=== PATIENT | male | born 1950 | race Caucasian/White ===

== ENCOUNTER 2022-01-14 05:07 | Observation (INO) ==
--- NOTE | 2021-12-19 16:02 | PAT Medication Instructions ---
Medication Instructions Date of Service December 19, 2021 Home Medications allopurinol 100 mg tablet 200 mg PO QAM aspirin 81 mg tablet,delayed release 81 mg PO QAM dutasteride 0.5 mg capsule 0.5 mg PO QAM Centrum Men 2 tab PO QAM olmesartan 20 mg tablet 20 mg PO QAM pioglitazone 45 mg tablet 45 mg PO QAM rosuvastatin 10 mg tablet 10 mg PO HS sitagliptin 100 mg tablet (Januvia) 100 mg PO QAM tamsulosin 0.4 mg capsule 0.8 mg PO HS vit C-vit E-sbguzj-tlcxogsl-omega 3 100 mg-15 unit-2 mg-100 mg capsule 2 cap PO QAM ASK your prescriber and surgeon aspirin 81 mg tablet,delayed release 81 mg PO QAM STOP taking 2 weeks before surgery (or as soon as possible if surgery is within 2 weeks) vit C-vit X-jwtgls-xwyhydqc-omega 3 100 mg-15 unit-2 mg-100 mg capsule 2 cap PO QAM DO NOT take the morning of surgery Centrum Men 2 tab PO QAM olmesartan 20 mg tablet 20 mg PO QAM pioglitazone 45 mg tablet 45 mg PO QAM sitagliptin 100 mg tablet (Januvia) 100 mg PO QAM Take morning of surgery With a small sip of water, OTHERWISE NOTHING TO EAT OR DRINK AFTER MIDNIGHT: allopurinol 100 mg tablet 200 mg PO QAM aspirin 81 mg tablet,delayed release 81 mg PO QAM (continue as normal unless told otherwise by surgeon) dutasteride 0.5 mg capsule 0.5 mg PO QAM Take evening before surgery rosuvastatin 10 mg tablet 10 mg PO HS tamsulosin 0.4 mg capsule 0.8 mg PO HS Other Notes If you have any questions please call us at [phone] or [phone] or [phone] or [phone]
--- NOTE | 2021-12-22 12:54 | Anesthesiology Consultation ---
Date of Service December 22, 2021 Assessment & Plan (1) Encounter for pre-operative examination: - Patient acceptable risk for surgery pending surgeon-ordered PCP preop evaluation (Dr. Barahona; 12/25). - COVID screening: Per assessment on 12/22: No known COVID-19 positive contacts or current COVID-19 related symptoms. Travel screen- patient states he will be driving to [place] with three friends to go [employer] 12/27-01/03. No large gatherings. Patient vaccinated. Preop Covid test scheduled 01/12 ([place]). Awaiting results. - Check BSG AM DOS Chart Review Chart Review: Patient seen in Pre Admission Testing Teaching & Discussion Pre-Anesthesia Teaching/Discussion Notes: Instructed NPO after midnight before surgery,except medications with 15 cc of water. Medication instructions provided according to the PAT guidelines. History Surgery Operation Date: 01/14/22 07:00 Proposed Procedures p Right Total Knee Arthroplasty - Juma Tamayo MD Height/Weight Height: 5 ft 8 in Weight: 131 kg Allergies Allergy/AdvReac Type Severity Reaction Status Date / Time No Known Allergies Allergy Verified 12/19/21 15:24 Medications Home Medications Medication Instructions Recorded Confirmed Last Taken allopurinol 100 mg tablet 200 mg PO QAM 12/19/21 12/19/21 Unknown dutasteride 0.5 mg capsule 0.5 mg PO QAM 12/19/21 12/19/21 Unknown multivit,Ca,min-iron 8 mg-folic 2 tab PO QAM 12/19/21 12/19/21 Unknown acid 200 mcg-lycopene 600 mcg tablet (Centrum Men) olmesartan 20 mg tablet 20 mg PO QAM 12/19/21 12/19/21 Unknown pioglitazone 45 mg tablet 45 mg PO QAM 12/19/21 12/19/21 Unknown rosuvastatin 10 mg tablet 10 mg PO HS 12/19/21 12/19/21 Unknown sitagliptin 100 mg tablet (Januvia) 100 mg PO QAM 12/19/21 12/19/21 Unknown tamsulosin 0.4 mg capsule 0.8 mg PO HS 12/19/21 12/19/21 Unknown vit C-vit M-zrflry-ljdnpraq-omega 2 cap PO QAM 12/19/21 12/19/21 Unknown 3 100 mg-15 unit-2 mg-100 mg capsule Past Medical History Medical History (Updated 12/22/21 @ 13:19 by Andressa Oconnell) Arthritis BPH (benign prostatic hyperplasia) Diabetes mellitus, type 2 NIDDM DVT (deep venous thrombosis) 1997, unknown etiology Hx of gout Hyperlipidemia Hypertension Morbid obesity Exercise / Class Metabolic Activity II 4-5 Yardwork/Stairs/Walk up hill Past Family History Family History Mother Diabetes Daughter Diabetes Past Surgical History Surgical History History of arthroscopy Left knee R/L shoulders History of colonoscopy History of surgery on right wrist cyst removed History of tonsillectomy History of tooth extraction Past Anesthesia History No Hx of Anesthesia Complications and No Family Hx of Anesthesia Complications History of PONV No Hx of PONV and No Hx of Motion Sickness Social History Smoking Status: Never smoker Do You Dip or Chew Tobacco: No Hx Alcohol Use: Yes Alcohol type: beer alcohol intake frequency: holidays/special occasions only Hx Substance Use: No substance use type: does not use Review of Systems Patient denies chest pain, shortness of breath, dyspnea on exertion, fever, chills, cough, wheezing, palpitations. Physical Exam Vital Signs VITALS BP 132/76 P 73 TEMP 98.4 SP02 95%RA RESP 16 PHYSICAL Full cervical extension range of motion. Full TMJ range of motion. TMD 3 finger breaths Mallampati Score 1 Dentition: several missing (molars) Lungs: clear throughout to auscultation Cardiac: regular rate and rhythm, no murmurs noted Spine: normal Carotid arteries: negative bruit Extremities: no edema Short, thick neck Lab Results Anesthesia Preop Results Results Anesthesia Widget: WBC 6.81 K/uL (4.8-10.8) 12/22/21 Hgb 14.6 g/dL (14.0-18.0) 12/22/21 Hct 44.4 % (42-52) 12/22/21 Plt 188 K/uL (130-400) 12/22/21 Na 142 mmol/L (136-145) 12/22/21 K 4.2 mmol/L (3.5-5.1) 12/22/21 Cl 108 mmol/L (98-107) H 12/22/21 CO2 29 mmol/L (21-32) 12/22/21 BUN 21 mg/dl (6-23) 12/22/21 Creat 1.23 mg/dl (0.6-1.4) 12/22/21 Glucose Level 173 mg/dl (70-99(Fasting)) H 12/22/21 PT 10.3 Seconds (9.0-12.0) 12/22/21 PTT 25.9 Seconds (21.0-31.0) 12/22/21 INR 1.0 (0.9-1.1) 12/22/21 HA1c 7.8 % (4.5-5.6) H 12/22/21 Urine Color Yellow 12/22/21 Urine Appearance Clear (Clear) 12/22/21 Urine pH 5.0 (4.5-7.5) 12/22/21 Urine Specific [place] 1.021 (1.000-1.030) 12/22/21 Urine Protein Trace (Negative) H 12/22/21 Urine Glucose (UA) Negative (Negative) 12/22/21 Urine Ketones Negative (Negative) 12/22/21 Urine Blood Negative (Negative) 12/22/21 Urine Nitrite Negative (Negative) 12/22/21 Urine Bilirubin Negative (Negative) 12/22/21 Urine Urobilinogen Negative (Negative) 12/22/21 Urine Leukocyte Esterase Negative (Negative) 12/22/21 Urine WBC (Auto) 0 /hpf (0-5) 12/22/21 Urine RBC (Auto) 0-4 /hpf (0-4) 12/22/21 Urine Hyaline Casts (Auto) 0 /lpf (0-5) 12/22/21 Urine Epithelial Cells (Auto) 0-5 /lpf (0-5) 12/22/21 Urine Bacteria (Auto) Negative (Negative) 12/22/21 Blood Type A Positive 12/22/21 Antibody Screen NEGATIVE 12/22/21 Testing Electrocardiogram Date: 12/22/21 NSR at 73bpm. RBBB. Chest X-Ray Date: 12/22/21 FINDINGS: The cardiomediastinal and hilar silhouettes are within normal limits. No pneumothorax, pleural effusion, airspace consolidation or overt pulmonary edema. Degenerative changes of the shoulders and spine. Mild right hemidiaphragmatic elevation. IMPRESSION: No acute process.
--- NOTE | 2021-12-29 16:08 | History & Physical Report ---
Date of Service December 29, 2021 Assessment & Plan (1) Right knee DJD: Plan: Postoperative prescriptions for Percocet and Coumadin will be provided at discharge from the hospital. Anticipate discharge to home with home health services. He already has access to a cane. He will also obtain a walker from a friend. The PDMP was checked and there are no concerning findings. He is aware of the COVID-19 risk associated with surgery. He is currently asymptomatic of any cover COVID-19 symptoms. Prescription was provided to obtain nasal swab testing 2 days prior to surgery. He was sent to [facility] to obtain lab work, EKG, and chest x-ray. He will obtain medical clearance from his PCP. History of Present Illness Chief Complaint: Right knee pain Primary Care Provider: NO PCP This 71-year-old male presents for his preoperative history and physical. He is scheduled to undergo a right knee total knee arthroplasty on 01/14/2022. The patient has had a longstanding history of bilateral knee pain, right greater than left. He received cortisone injections in the knees for many years with adequate relief. Over the last 3 years, his pain relief has diminished. He is now quite miserable. He cannot do the activities that he would like to. Pain is worse with weightbearing. It is affecting his ADLs. He denies any catching or locking. No buckling. No numbness or tingling. He notes mild effusions. There is night pain that prevents him from sleeping. Preoperative imaging has been obtained. Allergies Allergy/AdvReac Type Severity Reaction Status Date / Time No Known Allergies Allergy Verified 12/19/21 15:24 Home Medications Medication Instructions Recorded Confirmed Type allopurinol 100 mg tablet 200 mg PO QAM 12/19/21 12/19/21 History dutasteride 0.5 mg capsule 0.5 mg PO QAM 12/19/21 12/19/21 History multivit,Ca,min-iron 8 mg-folic 2 tab PO QAM 12/19/21 12/19/21 History acid 200 mcg-lycopene 600 mcg tablet (Centrum Men) olmesartan 20 mg tablet 20 mg PO QAM 12/19/21 12/19/21 History pioglitazone 45 mg tablet 45 mg PO QAM 12/19/21 12/19/21 History rosuvastatin 10 mg tablet 10 mg PO HS 12/19/21 12/19/21 History sitagliptin 100 mg tablet (Januvia) 100 mg PO QAM 12/19/21 12/19/21 History tamsulosin 0.4 mg capsule 0.8 mg PO HS 12/19/21 12/19/21 History vit C-vit C-yoaipz-doiwgxuu-omega 2 cap PO QAM 12/19/21 12/19/21 History 3 100 mg-15 unit-2 mg-100 mg capsule Past Med/Surg History Medical History Arthritis BPH (benign prostatic hyperplasia) Diabetes mellitus, type 2 NIDDM DVT (deep venous thrombosis) 1997, unknown etiology Hx of gout Hyperlipidemia Hypertension Morbid obesity Surgical History History of arthroscopy Left knee R/L shoulders History of colonoscopy History of surgery on right wrist cyst removed History of tonsillectomy History of tooth extraction Family History Mother Diabetes Daughter Diabetes Social History (Updated 12/29/21 @ 16:05 by Shun Tolentino PA-C) Smoking Status: Never smoker Second Hand Exposure: No; Hx Alcohol Use: Yes Alcohol type: beer Hx Substance Use: No Preferred Language: Japanese Communication Ability: Effective Clinical Project Manager Required: No Beliefs That Will Affect Care: None Current Living Situation: Spouse current occupational status: retired Feels Safe at Home: Yes Assistive Devices: Glasses and Walker Review of Systems Review of Systems: All systems reviewed & are unremarkable except as noted in HPI & below A total of 10 systems were reviewed. Physical Exam Physical Exam: Vitals: Height 171.4 cm, weight 131.4 kilograms, BMI 44.7. Temperature 36.4, BP 136/80, respirations 16, and O2 sat 94% on room air. General: Well-developed, well-nourished, elderly white male in no acute distress. Sitting on a bed. Alert and oriented. Skin: Warm and dry with good turgor. No rashes or lesions. No ecchymosis. No significant intra-articular effusion today. HEENT: Normocephalic, atraumatic. Eyes: PERRLA, EOMI. Nares patent bilaterally without turbinate enlargement. Oropharynx without erythema or exudate. Upper denture plate noted. Partial lower. Heart: RRR. No MGR. Lungs: Clear to auscultation bilaterally. No crackles, rhonchi or wheezing. Good air movement. Abdomen: Obese. Bowel sounds present x4, soft, nontender. No organomegaly. No masses. Musculoskeletal: Right knee has no intraarticular effusion. Slight varus align ment. He has full terminal extension. Flexion to 95 degrees. Strength is 5/5 with fairly good quad tone. Stable collateral ligaments. No defect in the patellar tendon or quadriceps tendon. Crepitus is palpable with motion at the patellofemoral joint. He ambulates today with a slightly antalgic gait. Neurologic: Gross sensation is intact across both lower extremities by soft touch. Peripheral pulses are 2+. Results & Data Results & Data ([facility]) Diagnostic Findings Radiographic imaging obtained previously shows significant medial joint space narrowing. He has [id number]. Periarticular osteophytes and subchondral sclerosis are also evident. Code Status & VTE Plan VTE Prophylaxis Plan VTE Prophylaxis will be ordered: Yes
[2022-01-14] MEDS ORDERED: TRANEXAMIC ACID 1,000 MG x 1 **For Topical Use TOP SCH (06:00)
[2022-01-14] MEDS ORDERED: LR 60ML/HR IV SCH (06:00)
[2022-01-14] MEDS ORDERED: ROPIVACAINE 0.5% HCL/PF 150 MG, BUPIVACAINE 0.75% MPF 20 ML, EPINEPHrine 0.15 MG, Ketor... INFIL SCH (06:00)
--- NOTE | 2022-01-14 06:16 | History & Physical Bridge Note ---
Date of Service January 14, 2022 History & Physical Bridge Note I have examined the patient, reviewed the History & Physical and in the interval since the performance of the History & Physical I have noted the following changes of clinical significance:consent obtained/site verified/covid screen negative. no changes noted
[2022-01-14] MEDS ORDERED: ROPIVACAINE 0.5% 5 MG/ML 30 ML VIAL ONE (06:19)
[2022-01-14] MEDS ORDERED: BUPIVACAINE 0.5 % 5 MG/1 ML PF 10ML VIAL ONE (06:19)
[2022-01-14] MEDS ORDERED: ORTHO JOINT ANESTHETIC ONE (06:30)
[2022-01-14] MEDS ORDERED: ONDANSETRON INJ 2 MG/ML 2 ML VIAL IV PRN ×2 (06:36→10:16)
[2022-01-14] MEDS ORDERED: fentaNYL citrate 100 MCG/2 ML VIAL IV PRN (06:36)
[2022-01-14] MEDS ORDERED: ePHEDrine sulfate 50 MG/ML AMP IV PRN (06:36)
[2022-01-14] MEDS ORDERED: ATROPINE SULFATE 0.1 MG/ML 10ML SYR IV PRN (06:36)
[2022-01-14] MEDS ORDERED: fentaNYL citrate 100 MCG/2 ML VIAL ONE (06:39)
[2022-01-14] MEDS ORDERED: MIDAZOLAM HCL 1 MG/ML 2ML VIAL ONE ×2 (06:39→07:20)
[2022-01-14] MEDS ORDERED: SUCCINYLCHOLINE CHLORIDE 20 MG/ML 10 ML VIAL IV ONE (07:33)
[2022-01-14] MEDS ORDERED: PROPOFOL IV EMULSION 10 MG/ML 20 ML VIAL IV ONE (07:33)
[2022-01-14] MEDS ORDERED: LIDOCAINE 2% 2 ML VIAL/AMP(20MG/ML) INFIL ONE (07:33)
[2022-01-14] MEDS ORDERED: ROCURONIUM BROMIDE 10 MG/ML 5 ML VIAL IV ONE (07:33)
--- NOTE | 2022-01-14 08:50 | Post Operative Brief Note ---
Immediate Post Op Note v1 Date of Surgery January 14, 2022 Pre & Post Diagnosis Operation Date: 01/14/22 07:00 Pre-Op Diagnosis: Osteoarthritis Knee Right Post-Op Diagnosis: Osteoarthritis Knee Right I identified the patient and participated in the time-out.: Yes Procedure Operation Date: 01/14/22 07:00 Actual Procedures p Right Total Knee Arthroplasty, Cemented(Right) - Juma Tamayo MD Surgeon Juma Tamayo MD Drug Abuse Program Coordinator Hema/Randa Estimated Blood Loss 50 Findings Consistent with Post-Op Diagnosis DJD/Bursa
--- NOTE | 2022-01-14 09:05 | Operative Report ---
Post Operative Report Pre & Post Diagnosis Operation Date: 01/14/22 07:00 Pre-Op Diagnosis: Osteoarthritis Knee Right Post-Op Diagnosis: Osteoarthritis Knee Right I identified the patient and participated in the time-out.: Yes Procedure Operation Date: 01/14/22 07:00 Actual Procedures p Right Total Knee Arthroplasty, Cemented(Right) - Juma Tamayo MD Surgeon Francisco Tamayo MD Program Management Specialist Hema/Randa Estimated Blood Loss 50 Findings Consistent with Post-Op Diagnosis Consistent with post op diagnosis. Specimens No specimens. Description of Procedure I participated in prepping dressing and assisted Dr. Tamayo during the procedure. Please see Dr. Tamayo. I attest to the content of the Intraoperative Record and any orders documented therein. Any exceptions are noted below. Supervising Physician Co-Signing Physician Notes Dr. Tamayo
--- NOTE | 2022-01-14 09:06 | Operative Report ---
Post Operative Report Pre & Post Diagnosis Operation Date: 01/14/22 07:00 Pre-Op Diagnosis: Osteoarthritis Knee Right Post-Op Diagnosis: Osteoarthritis Knee Right I identified the patient and participated in the time-out.: Yes Procedure Operation Date: 01/14/22 07:00 Actual Procedures p Right Total Knee Arthroplasty, Cemented(Right) - Juma Tamayo MD Surgeon JULIÁN Tamayo MD Power Manager Hema/Randa Estimated Blood Loss 50 Findings Consistent with Post-Op Diagnosis see operative report Specimens see operative report Drains none Complications none Disposition Accompanied Patient To Recovery: Yes Indications This 71 year old male presented to the office with complaints of persisting right knee pain. He had tried conservative care measures without improvement. He elected to proceed with surgical intervention after being educated about potential risks and outcomes. Preoperative imaging was obtained. Description of Procedure Patient was administered a spinal anesthetic and then taken to the operating room where he was given sedation. He was prepped and draped in the usual sterile fashion. Please see Dr. Tamayo's operative report for specifics of the procedure. I was present for the entire case from initial patient positioning through final wound closure. Assistance was provided in tissue retraction, hemostasis, trial implant placement, final implant placement, and final wound closure. Patient was taken to the recovery room in satisfactory condition. I attest to the content of the Intraoperative Record and any orders documented therein. Any exceptions are noted below.
--- NOTE | 2022-01-14 09:16 | Progress Notes ---
SUBJECTIVE: Postop check status post right total knee replacement. The patient is resting comfortab ly in bed. Spinal still in place. Denies any chest pain, shortness of breath, fever, chills, nausea , vomiting or headache. OBJECTIVE: Wound dressing clean, dry and intact. Neurovascular check limited by spinal. X-rays are pending. ASSESSMENT: Doing well. Continue care pathway. Job ID: [id number]
--- NOTE | 2022-01-14 09:28 | XRay Report ---
XR knee RT 1 or 2V routine CLINICAL HISTORY: S/P R TKA TECHNIQUE: 2 views of the right knee were obtained. Comparison: Comparison is made to knee radiographs 09/29/2021 FINDINGS: Patient is status post total knee arthroplasty with expected postsurgical changes including soft tiss ue swelling, subcutaneous emphysema, and surgical staple placement. No periarticular lucency or hardw are fracture is seen. IMPRESSION: Expected postoperative appearance status post placement of total knee arthroplasty. ACT 112: Negative or not required by law. Electronically signed by: Valdemar Fowler M.D. 01/14/2022 9:26 AM
--- NOTE | 2022-01-14 09:46 | Operative Report (OR) ---
DATE OF SURGERY: 01/14/2022. SURGEON: Juma Tamayo MD PAYROLL SERVICES ANALYST: Deb Garrido MD SECOND PAYROLL SERVICES ANALYST: Shun Tolentino PA-C PREOPERATIVE DIAGNOSIS: Osteoarthritis with flexion, and varus deformity, right knee. POSTOPERATIVE DIAGNOSIS: Osteoarthritis with flexion, and varus deformity, right knee. OPERATION PERFORMED: Cemented right total knee replacement. SUMMARY OF IMPLANTS: J and J rotating platform size 5 right femur, posterior cruciate substituting s ize 5 mobile bearing tray, 41 patella, size 5 x 10 mm posterior cruciate substituting insert, 2 bags of Pal[place]os G cement, oval dome 3-peg patella, size 41. BLOOD LOSS: 50 mL. CRYSTALLOID: Per anesthesia. PATHOLOGY: Pending on bone. DEEP VENOUS THROMBOSIS PROPHYLAXIS: Per protocol, will use Eliquis, history of DVT in the past. Mehdi l start that at 24 hours postop. DESCRIPTION OF PROCEDURE: The patient was appropriately identified, site verified, consent verified. Antibiotics were confirmed as being given. The right lower extremity was prepped and draped in the usual routine fashion. Tourniquet was inflated to 300 mmHg after exsanguination of limb with a rubb er Esmarch bandage for a total of 60 minutes. Midline exposure utilized. Parapatellar arthrotomy pe rformed, synovectomy completed, quite large ____ on the thigh at roughly 95 degrees. Eversion performed on the patella after extensive release, there was significant scar tissue there. Once the synovectomy was completed, osteophytes resected. Distal femur entered, resected 12 mm, prox imal tibia extramedullary guide placed and then that resected 4 mm. The extension gap was excellent. The tibia was sized to between a 4 and a 5, we kept the 5. The femur was sized between a 6 and a 5 , it was measured 6, cut 5 with no notching. Flexion gap was excellent. Posterior capsule was then injected. A box cut made and the size 5 fit w ell. The tibia was then broached and reamed to a size 5 and a 10 spacer gave excellent mid range and full extension and flexion stability and the range of motion was excellent. The patella required ex tensive lengthening of the extensor retinaculum laterally. The patella was then resected leaving 14 mm and a 41 button was seated and then tracked well with the appropriate soft tissue realignments. All trial elements were then removed. The wound was soaked with TXA for 3 minutes, then irrigated wi th Betadine, Pulsavac, and the permanent cemented in position, tibia, femur, and patella in that orde r. After 12 minutes, the tourniquet deflated. Minor bleeding encountered. After 14 minutes, the kn ee flexed. Minor cement removal required. The wound was then irrigated one final time with Betadine and the permanent liner seated. The knee reduced at 40 degrees of flexion with #2 Vicryl, 2-0 Vicry l, and stainless steel clips. Due to his venous disease, a Martin Faulkner dressing was applied. He wi ll be weightbearing as tolerated. He will need good venous compression throughout the recovery. Margaret mar pending on bone. Job ID: [id number]
--- NOTE | 2022-01-14 09:48 | Anesthesiology Progress Note ---
Date of Service January 14, 2022 Anesthesia Post Procedure Vital Signs Vital Signs: Temp Pulse Pulse Resp BP BP Pulse Ox 01/14/22 09:40 97.3 F L 62 18 124/66 97 01/14/22 09:30 60 12 121/69 96 01/14/22 09:20 65 14 116/67 98 01/14/22 09:10 61 12 106/60 98 01/14/22 09:03 97.2 F L 69 16 107/59 L 98 01/14/22 05:33 98.8 F 78 18 153/69 H 94 Transfer of Care Handoff Completed per policy Notes Mental Status: alert / awake / arousable and participated in evaluation Patient Amnestic to Procedure: Yes Nausea / Vomiting: adequately controlled Pain: adequately controlled Airway Patency, RR, SpO2: stable & adequate BP & HR: stable & adequate Hydration State: stable & adequate Neuraxial Anesthesia: was administered and sensory block is resolving Anesthetic Complications: no major complications apparent and Pt Satisfied with anesthetic care
[2022-01-14] MEDS ORDERED: NALOXONE HCL 0.4 MG/1 ML VIAL/CARP IV PRN (10:16)
[2022-01-14] MEDS ORDERED: HYDROmorphone INJ 0.5 MG/0.5 ML SYR IV PRN (10:16)
[2022-01-14] MEDS ORDERED: MAGNESIUM HYDROXIDE SUSP 30 ML UDC PO PRN (10:16)
[2022-01-14] MEDS ORDERED: SODIUM CHLORIDE 0.9% 1000ML 1,000 ML IV SCH (10:16)
[2022-01-14] MEDS ORDERED: diphenhydrAMINE 50 MG/ML VIAL IV PRN (10:16)
[2022-01-14] MEDS ORDERED: bisacodyL 10 MG SUPP PR PRN (10:16)
[2022-01-14] MEDS ORDERED: ALUMINUM/MAGNESIUM SUSP 30 ML UDC PO PRN (10:16)
[2022-01-14] MEDS ORDERED: METOCLOPRAMIDE HCL INJ 5 MG/ML 2 ML VIAL IV PRN (10:16)
[2022-01-14] MEDS ORDERED: PHARMACY GLYCEMIC MGMT CONSULT PRN (10:16)
--- NOTE | 2022-01-14 10:48 | Discharge Summary (DS) ---
DATE OF ADMISSION: 01/14/2022. DATE OF POTENTIAL DISCHARGE: 01/15/2022. CHIEF COMPLAINT: Right knee pain. HISTORY OF PRESENT ILLNESS: The patient underwent elective right total knee replacement today and ho spital course has been uneventful. ALLERGIES: None. HOME MEDICATIONS: Include allopurinol, dutasteride, multivitamin, olmesartan, pioglitazone, rosuvast atin, Januvia, tamsulosin, multivitamins. PAST MEDICAL HISTORY: Remarkable for arthritis, benign prostatic hyperplasia, diabetes mellitus type 2, history of DVT in 1997, history of gout, history of hyperlipidemia, hypertension, morbid obesity. PAST SURGICAL HISTORY: Remarkable for arthroscopy of knees and shoulders, colonoscopies, right wrist , tonsillectomy, tooth surgery. FAMILY HISTORY: Diabetes on maternal side. SOCIAL HISTORY: Reveals he does not smoke, secondhand exposure none. Alcohol social. Retired, live s with his . Wears glasses. REVIEW OF SYSTEMS: Noncontributory. ASSESSMENT AND PLAN: Doing well status post right total knee replacement. Continue care pathway. D ischarge home tomorrow with services. Job ID: [id number]
[2022-01-14] MEDS ORDERED: GLUCAGON FOR INJ 1 MG VIAL IM PRN (11:00)
[2022-01-14] MEDS ORDERED: GLUCOSE 40% GEL 15 GM TUBE PO PRN (11:00)
[2022-01-14] MEDS ORDERED: CARBOHYDRATES FOR HYPOGLYCEMIA PO PRN (11:00)
[2022-01-14] MEDS ORDERED: DEXTROSE 50% 50 ML SYRINGE IV PRN (11:00)
[2022-01-14] MEDS ORDERED: GLUCOSE 10 TABS/TUBE PO PRN (11:00)
[2022-01-14] MEDS ORDERED: INSULIN ASPART PER UNIT SC SCH (11:30)
[2022-01-14] MEDS ORDERED: INSULIN GLARGINE SOLOSTAR 100 UNITS/ML 3 ML PEN SC ONE (11:30)
--- NOTE | 2022-01-14 12:24 | Pharmacy Report ---
Pharmacy Glycemic Short Note 2 - Date of Service January 14, 2022 - Glycemic Short BSG Results (Last 24 hours): 01/14/22 01/14/22 01/14/22 06:20 09:06 12:07 POC Glucose 161 H 169 H 172 H OUTPATIENT ANTIDIABETIC REGIMEN: * Actos 45 mg PO daily * Januvia 100 mg PO daily * HBA1C = 7.8% (12/22/21) ASSESSMENT: * Mr Carroll is a 71 y/o M with a PMH of T2DM who presents for R knee replacement. He is POD 0. There was dexamethasone in his ortho mix. * BSGs prior to surgery were 161-169 mg/dL prior to surgery and 172 mg/dL after surgery. * Since patient on two oral medications at home, start with Lantus 30 units adrianna ly (~0.2 units/kg) + Novolog weight-based stress of 2. * Hold oral agents for 24 hours after surgery. PLAN FOR INPATIENT GLYCEMIC CONTROL: * Hold outpatient oral diabetes medications * Basal insulin * Lantus 30 units SQ x1 * Bolus insulin * NovoLog per scale ACHS or Q6hrs while NPO * Goal Range: Low 110 mg/dL - High 140 mg/dL * Correction Factor: 25 mg/dL/unit * Nutritional / Prandial insulin per carb ratio of 1 unit per 7 grams CHO consumed
[2022-01-14] MEDS: KETOROLAC TROMETHAMINE 15 MG/ML VIAL IV SCH ×2 (12:33→17:50)
[2022-01-14] MEDS: INSULIN ASPART PER UNIT SC SCH ×3 (12:41→20:38)
[2022-01-14] MEDS: oxyCODONE HCL IR 5 MG TAB (IMMEDIATE RELEASE) PO PRN ×2 (14:46→19:51)
[2022-01-14] MEDS: ACETAMINOPHEN 500 MG TAB PO SCH ×2 (15:31→22:23)
[2022-01-14] MEDS: ceFAZolin 2000MG 2,000 MG/15 ML SYR IV SCH ×2 (15:32→22:23)
[2022-01-14] MEDS: ASCORBIC ACID 500 MG TAB PO SCH (17:50)
[2022-01-14] MEDS: FERROUS GLUCONATE 324 MG TAB PO SCH (17:50)
[2022-01-14] MEDS: DOCUSATE SODIUM 100 MG CAP PO SCH (20:33)
[2022-01-14] MEDS ORDERED: TAMSULOSIN HCL 0.4 MG CAP PO SCH (21:00)
[2022-01-14] MEDS ORDERED: ROSUVASTATIN CALCIUM 10 MG TAB PO SCH (21:00)
[2022-01-14] MEDS ORDERED: SENNA 8.6 MG TAB PO SCH (21:00)
[2022-01-15] MEDS: KETOROLAC TROMETHAMINE 15 MG/ML VIAL IV SCH ×2 (00:11→05:33)
[2022-01-15] MEDS: ACETAMINOPHEN 500 MG TAB PO SCH (05:33)
--- NOTE | 2022-01-15 06:52 | Progress Notes ---
SUBJECTIVE: Postop day #1, status post right total knee replacement. The patient is doing well, sle eping easily. Denies chest pain, shortness of breath, fever, chills, nausea, vomiting or headache. OBJECTIVE: Vital signs are stable. He is afebrile. Neurovascular check femoral sciatic nerve is normal. Calves are nontender. Wound dressing is clean, dry and intact. Can do a straight leg raise. ASSESSMENT AND PLAN: Doing well. Discharged home today after PT/OT. Jackie [email or web address] DVT prophylaxi s. Follow up in 2 weeks for staple removal. Pressure dressing to help with veins. Has chronic lori is. Job ID: [id number]
[2022-01-15 07:42] LABS: Hemoglobin 13.2 g/dL (14.0-18.0); Mean Corpuscular Hemoglobin 31.7 pg (25-34); Mean Corpuscular Hgb Conc 33.8 g/dL (32-36); Mean Corpuscular Volume 93.8 fL (80-100); Mean Platelet Volume 9.4 fL (7.4-10.4); Platelet Count 152 K/uL (130-400); RDW Coefficient of Variation 14.2 % (11.5-14.5); RDW Standard Deviation 48.7 fL (36.4-46.3); Red Blood Count 4.16 M/uL (4.7-6.1); White Blood Count 8.49 K/uL (4.8-10.8)
[2022-01-15] MEDS ORDERED: dexAMETHasone 10 MG in SYRINGE 0 ML IV SCH (08:00)
[2022-01-15 08:01] LABS: BUN Creatinine Ratio 19.7 (10-20); Calcium 8.6 mg/dl (8.5-10.1); Creatinine Clr Calc Pharmacy 58.1 ml/min; Est GFR (African American) 52.3 ml/min; Est GFR (Non-African American) 45.1 ml/min; Potassium 4.4 mmol/L (3.5-5.1)
[2022-01-15] MEDS: INSULIN ASPART PER UNIT SC SCH (08:43)
[2022-01-15] MEDS: FERROUS GLUCONATE 324 MG TAB PO SCH (08:52)
[2022-01-15] MEDS: ASCORBIC ACID 500 MG TAB PO SCH (08:52)
[2022-01-15] MEDS: DOCUSATE SODIUM 100 MG CAP PO SCH (08:52)
[2022-01-15] MEDS: oxyCODONE HCL IR 5 MG TAB (IMMEDIATE RELEASE) PO PRN (08:56)
[2022-01-15] MEDS ORDERED: INSULIN GLARGINE SOLOSTAR 100 UNITS/ML 3 ML PEN SC ONE (09:00)
[2022-01-15] MEDS ORDERED: allopurinoL 100 MG TAB PO SCH (09:00)
[2022-01-15] MEDS ORDERED: APIXABAN 2.5 MG TAB PO SCH (09:00)
[2022-01-15] MEDS ORDERED: MULTIVITAMIN TAB PO SCH (09:00)
[2022-01-15] MEDS ORDERED: DUTASTERIDE 0.5 MG SCH (09:00)
[2022-01-15] MEDS ORDERED: OLMESARTAN MEDOXOMIL 20 MG TAB PO SCH (09:00)
--- NOTE | 2022-01-15 10:03 | Orthopedic Progress Note ---
Date of Service January 15, 2022 Assessment & Plan (1) S/P total knee replacement using cement: Plan: Patient was seen in his room this morning. His dressing was changed. The usual gauze, ABDs, and Kerlix dressing was applied, and Webril cast padding was used additionally for a bulky dressing given his venous stasis changes. His ILIR hose was applied and fit well. Anticipate discharged home today with home health services, after PT/OT. He will continue using his walker when ambulatory. Continue using the knee immobilizer today and tomorrow. He will start his Eliquis this morning and take it twice daily for the next 6 weeks. Patient's prescriptions for Percocet and Eliquis 2.5 mg were sent to his pharmacy. Prescription for home health PT was provided. Follow-up in the office in 2 weeks as scheduled for staple removal. Admission and Anticipated Discharge Date Admission Date: January 14, 2022 Subjective Patient is seen in his room this morning. States he did fairly well overnight. He is having some pain, but rates it as 5/10. He denies any nausea, vomiting, chest pain, shortness of breath, abdominal pain, numbness, or tingling. He would like to go home today. No other complaints. Review of Systems Review of Systems: Unchanged from yesterday. Physical Exam Physical Exam: General: Well-developed, well-nourished, elderly male, in no acute distress. Sitting in a chair. Alert and oriented. Conversive. Skin: Warm and dry with good turgor. No rashes. Postoperative Faulkner dressing is in place on the right leg. Upon removal, his surgical incision is closed. Export are intact. Wound edges are well approximated. Expected postoperative ecchymosis. Minimal edema in the extremity or knee. No active bleeding from his surgical site. There was a moderate amount of dried blood on his most inner dressings. Musculoskeletal: Patient has intact motor function of the right leg. He is able to perform a straight leg raise. Intact motor function the ankle and toes. His knee is currently flex to around 70 degrees. Neurologic: Gross sensation is intact across the right leg by soft touch. Peripheral pulses are 2+. Results & Data ([facility]) Vital Signs (Past 12 Hours) Vital Signs Temp Pulse Resp BP Pulse Ox 01/15/22 07:28 36.5 C 65 18 146/77 H 92 06/09/22 03:08 36.4 C L 56 L 17 133/73 92 01/14/22 22:32 36.4 C L 61 16 138/79 93 Laboratory Results WBCs 8.49, hemoglobin 13.2, hematocrit 39.0. Glucose 148. BUN of 30 with creatinine 1.5.
== END 2022-01-15 12:17 | disposition home health service (06) ==
LOC: ASU 05:07 → 3E 05:07